=== PATIENT | male | born 1975 | race Caucasian/White ===

== ENCOUNTER 2017-02-10 20:18 | Emergency (ER) | payer OTHER ==
[2017-02-10] MEDS ORDERED: IPRATROPIUM/ALBUTEROL SULFATE 3 ML AMPUL.NEB NEB ONE (20:46)
[2017-02-10] MEDS ORDERED: KETOROLAC TROMETHAMINE 60 MG/2 ML VIAL IM ONE (20:59)
--- NOTE | 2017-02-10 21:00 | ED Physician Documentation ---
General Adult - HPI Stated Complaint: wants shot of toradol Chief Complaint: General Adult Additional Information: Pain right arm not refractory to percocet and naprosym. Says toradol will help. Pain x 5 hours, which he blames on exams of the arm yesterday at orthopedics. 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 - ROS CONST: no problems - PAST HX Past History: other (PTSD, anxiety, insomnia, nightmares) Surgeries/Procedures: other (ortho) Allergies/Adverse Reactions: Allergies Allergy/AdvReac Type Severity Reaction Status Date / Time theophylline Allergy Verified 06/04/15 20:02 Home Medications: Ambulatory Orders Medication Instructions Recorded Clonazepam [Clonazepam] 06/04/15 Duloxetine HCl [Duloxetine HCl] 06/04/15 Hydrocodone/Acetaminophen 06/04/15 [Hydrocodon-Acetaminophn 10-325] Lamotrigine [Lamotrigine] 06/04/15 Oxycodone HCl [Oxycontin] 06/04/15 Prazosin HCl 06/04/15 - SOCIAL HX Smoking History: cigarettes - FAMILY HX Family History: No - VITAL SIGNS Vital Signs: Vital Signs Temp Pulse Resp BP Pulse Ox 98.4 F 64 18 137/87 95 02/10/17 20:20 02/10/17 20:20 02/10/17 20:20 02/10/17 20:20 02/10/17 20:20 - REVIEWED ASSESSMENTS Nursing Assessment Reviewed: Yes Vitals Reviewed: Yes ED Results Lab/Radiology - Orders Orders: ED Orders Category Date Time Status Ipratropium/Albuterol Sulfate [Duoneb] Med 02/10/17 20:46 Discontinued 3 ml NEB .STK-MED ONE Ketorolac Tromethamine [Toradol] Med 02/10/17 20:59 Once 60 mg IM NOW ONE General Adult Physical Exam - PHYSICAL EXAM GENERAL APPEARANCE: mild distress EENT: eye inspection normal, ENT inspection normal NECK: normal inspection, supple RESPIRATORY: no resp distress RECTAL: deferred BACK: other (movements w/o pain) SKIN: warm/dry, normal color EXTREMITIES: normal range of motion (except holds right arm stiffly with elbow flexed 90 degrees. Right radial pulse 2+) NEURO: CN's nml as tested, motor nml, sensation nml Discharge Clincal Impression: right arm pain Additional Instructions: Follow up with orthopedics. Home Medications: Ambulatory Orders Clonazepam [Clonazepam] 06/04/15 Duloxetine HCl [Duloxetine HCl] 06/04/15 Hydrocodone/Acetaminophen [Hydrocodon-Acetaminophn 10-325] 06/04/15 Lamotrigine [Lamotrigine] 06/04/15 Oxycodone HCl [Oxycontin] 06/04/15 Prazosin HCl 06/04/15 Condition: Good Disposition: 01 HOME, SELF-CARE Decision to Admit: NO Decision Time: 21:11
[2017-02-10 21:42] VITALS: BP 138/95
== END 2017-02-10 21:30 | disposition home or self-care (01) ==
LOC: ED 20:18
DX: M79.601 Pain in right arm (principal)
CPT/HCPCS: 96372; 99283; J1885

== ENCOUNTER 2018-07-06 19:29 | Emergency (ER) | payer OTHER ==
[2018-07-06 20:04] LABS: BASOPHILS % 0.6 (0.0-1.5); EOSINOPHILS % 3.3 % (0.0-6.8); MEAN CORPUSCULAR HEMOGLOBIN 31.5 pg (28.0-34.0); MEAN CORPUSCULAR VOLUME 92.3 fl (80.0-100.0); MONOCYTES % 5.1 % (0.0-11.0); NEUTROPHILS # 5.2 # k/uL (1.4-7.7)
--- NOTE | 2018-07-06 20:04 | ED Physician Documentation ---
Abdominal Pain - HPI Stated Complaint: Upper abdominal pain Chief Complaint: Abdominal Pain Additonal Information: Patient with past medical history of PTSD, anxiety, depression and chronic pain syndrome, presented to ED on day of admission with a 5 day history of epigastric pain, nonradiating, exacerbated by food intake. Patient admits to nausea however without vomiting. He was diagnosed with gallbladder disease approximately 7 years ago and was supposed to have surgery, however, did not follow up. He denies fever, chills or nightsweats. Onset: days ago (5) Duration: waxing, waning Timing: still present Context: other (none) Severity: moderate Quality: sharp, stabbing Associated Symptoms: denies: coffee ground emesis, diarrhea, bloody stools Exacerbated by: food Relieved by: remaining still - ROS CONST: no problems GI/: denies: black stools, bloody stools CVS/RESP: none EYES/ENT: none MS/SKIN/LYMPH: denies: swollen glands NEURO/PSYCH: none - SOCIAL HX Smoking History: quit greater than 1 year, cigarettes (25 pack year history) Alcohol Use: none Drug Use: none - FAMILY HX Family History: other (cancer, CAD ) - PAST HX Past History: other (PTSD, Anxiety, Depression) Ischemic Bowel Risk Factors: none Other History: none Surgeries/Procedures: none Home Medications: Ambulatory Orders Medication Instructions Recorded Duloxetine HCl 120 mg PO D 06/04/15 Lamotrigine 300 mg PO BID 06/04/15 Naproxen [Naprosyn] 500 mg PO BID 02/10/17 Oxycodone HCl/Acetaminophen 1 each PO Q6H PRN 02/10/17 [Percocet 10/325] Quetiapine Fumarate [Seroquel] 200 mg PO D 02/10/17 Tramadol HCl [Ultram] 50 mg PO DAILY 07/06/18 Allergies/Adverse Reactions: Allergies Allergy/AdvReac Type Severity Reaction Status Date / Time theophylline Allergy Verified 07/06/18 20:06 - VITAL SIGNS Vital Signs: Vital Signs Temp Pulse Resp BP Pulse Ox 97.0 F L 88 18 137/98 98 07/06/18 19:30 07/06/18 19:30 07/06/18 19:30 07/06/18 19:30 07/06/18 19:30 - REVIEWED ASSESSMENTS Nursing Assessment Reviewed: Yes Vitals Reviewed: Yes Progress - Progress Progress: 2100 Patient is feeling better. He would like to go home. ED Results Lab/Radiology - Lab Results Lab Results: Lab Results 07/06/18 07/06/18 07/06/18 19:56 19:55 19:55 WBC 7.40 K/ul K/ul (4.00-12.00) RBC 5.28 M/ul H M/ul (3.90-5.20) Hgb 16.6 g/dL g/dL (12.0-18.0) Hct 48.7 % % (37.0-53.0) MCV 92.3 fl fl (80.0-100.0) MCH 31.5 pg pg (28.0-34.0) MCHC 34.1 g/dL g/dL (30.0-36.0) RDW 13.9 % % (11.3-14.3) Plt Count 280 K/mm3 K/mm3 (130-400) Neut % (Auto) 69.5 % % (39.0-79.0) Lymph % (Auto) 20.1 % % (16.0-50.0) Larue % (Auto) 5.1 % % (0.0-11.0) Eos % (Auto) 3.3 % % (0.0-6.8) Baso % (Auto) 0.6 (0.0-1.5) Neut # (Auto) 5.2 # k/uL # k/uL (1.4-7.7) Lymph # (Auto) 1.5 # k/uL # k/uL (0.6-4.0) Larue # (Auto) 0.4 # k/uL # k/uL (0.0-0.9) Eos # (Auto) 0.2 # k/uL # k/uL (0.0-0.6) Baso # (Auto) 0.0 # k/uL # k/uL (0.0-0.5) Reactive Lymphs % 1.4 % % (0.0-5.0) Reactive Lymphs # 0.1 # k/uL # k/uL (0.0-0.8) Sodium 142 mmol/L mmol/L (136-145) Potassium 4.3 mmol/L mmol/L (3.5-5.1) Chloride 105 mmol/L mmol/L (98-107) Total Carbon Dioxide 21 mmol/L L mmol/L (22-29) BUN 13 mg/dL mg/dL (6-20) Creatinine 1.02 mg/dL mg/dL (0.40-1.50) Estimated GFR mL/min 116 Glucose 103 mg/dL H mg/dL (70-99 Fasting) Calcium 10.1 mg/dL mg/dL (8.6-10.2) Total Bilirubin 0.3 mg/dL mg/dL (<1.2) AST 12 U/L U/L (<40) ALT 11 U/L U/L (<42) Alkaline Phosphatase 92 U/L U/L (40-129) Troponin I < 0.03 ng/mL L ng/mL (0.03-0.06) Total Protein 7.1 g/dL g/dL (6.0-8.5) Albumin 4.7 g/dL g/dL (3.5-5.2) Lipase 27 U/L U/L (13-60) - Radiology Radiology Impressions: CT abdomen and pelvis without contrast Date of study: July 06, 2018. CLINICAL HISTORY: EPIGASTRIC PAIN, SEVERE ABD PAIN (Hx) / ITS.REASON epigastric pain TECHNIQUE: 5 mm contiguous axial images of the abdomen and pelvis non contrast. FINDINGS: The lung bases are clear. No comparison studies are provided. Abdomen: Multiple hepatic hypodensities are present that may represent hepatic cysts. Correlation with followup ultrasound is recommended. The pancreas and spleen are normal in appearance. The gallbladder is unremarkable. The kidneys are normal in size and surface contour. There is no evidence of renal or ureteral calculi. No hydronephrosis or perinephric stranding is evident. The aorta is normal in caliber. The small bowel is nondistended. There is no evidence of free air or free fluid. Pelvis: The colon is normal in appearance. The distal ureters and bladder are normal in appearance. There is no evidence of distal ureteral or intravesicular calculi. The appendix is normal. There is no evidence of free air or free fluid. There is scattered diverticulosis of the descending and sigmoid colon. The remaining pelvic structures are within normal limits and the bones of the pelvis are intact. Numerous pelvic phleboliths are noted. IMPRESSION: No evidence of renal or ureteral calculi. Normal appendix. Multiple hepatic hypodensities that may represent cysts. Recommend correlation with followup ultrasound. - Orders Orders: ED Orders Category Date Time Status Place IV Lock 1T Care 07/06/18 20:[address] ABD & PELVIS W/ CON Stat Exams 07/06/[address] ABD & PELVIS W/O CON Stat Exams 07/06/18 Ordered CBC/PLATELET/DIFF Routine Lab 07/06/18 19:55 Completed TROPONIN I (cTnI) Stat Lab 07/06/18 19:56 Completed Abdominal Pain Physical Exam - Physical Exam General Appearance: no acute distress EENT: [place] NECK: supple RESPIRATORY: no resp distress CVS: reg rate & rhythm ABDOMEN: soft, normal bowel sounds, tenderness (epigastric) BACK: no CVA tenderness SKIN: warm/dry EXTREMITIES: no edema NEURO: oriented X3, motor nml Vital Signs: Vital Signs Temp Pulse Resp BP Pulse Ox 97.0 F L 88 18 137/98 98 07/06/18 19:30 07/06/18 19:30 07/06/18 19:30 07/06/18 19:30 07/06/18 19:30 Discharge Clincal Impression: Abdominal pain Qualifiers: Abdominal location: epigastric Qualified Code(s): R10.13 - Epigastric pain Referrals: Tony Nj MD [Primary Care Provider] - 2 Days Additional Instructions: Take over the counter Prilosec twice daily x 7 days. Avoid spicy or acidic foods. Decrease smoking, ideally stop smoking. Follow up with PCP in 3 days to discuss liver cysts, will need follow up US in 3 months. Condition: Good Decision to Admit: NO Date of Decison to Admit: 07/06/18 Decision Time: 21:58
[2018-07-06 21:21] LABS: LIPASE 27 U/L (13-60); TOTAL PROTEIN 7.1 g/dL (6.0-8.5)
[2018-07-06 22:19] VITALS: BP 140/98
--- NOTE | 2018-07-07 06:55 | Diagnostic Imaging Report ---
IMELDA MEI [facility] [address] [facility] [address] [place], [place]. [address] Report Submission Date: Jul 06, 2018 9:08:53 PM CDT Patient Study Name: FIDENCIO NAVARRO Date: Jul 06, 2018 8:12:35 PM CDT Modality Type: CT\SR Gender: M Description: CT ABD PELVIS W/O CO : 79 Institution: [facility] Physician: IMELDA MEI CT abdomen and pelvis without contrast Date of study: July 06, 2018. CLINICAL HISTORY: EPIGASTRIC PAIN, SEVERE ABD PAIN (Hx) / ITS.REASON epigastric pain TECHNIQUE: 5 mm contiguous axial images of the abdomen and pelvis non contrast. FINDINGS: The lung bases are clear. No comparison studies are provided. Abdomen: Multiple hepatic hypodensities are present that may represent hepatic cysts. Correlation with followup ultrasound is recommended. The pancreas and spleen are normal in appearance. The gallbladder is unremarkable. The kidneys are normal in size and surface contour. There is no evidence of renal or ureteral calculi. No hydronephrosis or perinephric stranding is evident. The aorta is normal in caliber. The small bowel is nondistended. There is no evidence of free air or free fluid. Pelvis: The colon is normal in appearance. The distal ureters and bladder are normal in appearance. There is no evidence of distal ureteral or intravesicular calculi. The appendix is normal. There is no evidence of free air or free fluid. There is scattered diverticulosis of the descending and sigmoid colon. The remaining pelvic structures are within normal limits and the bones of the pelvis are intact. Numerous pelvic phleboliths are noted. IMPRESSION: No evidence of renal or ureteral calculi. Normal appendix. Multiple hepatic hypodensities that may represent cysts. Recommend correlation with followup ultrasound. Electronically signed on Jul 06, 2018 9:08:53 PM CDT by: Caroline NARVAEZ
== END 2018-07-06 22:05 | disposition home or self-care (01) ==
LOC: ED 19:29
DX: R10.13 Epigastric pain (principal)
CPT/HCPCS: 74176; 80053; 83690; 84484; 85025; 99284; S1016